=== PATIENT | female | born 1975 | race Asian ===

== ENCOUNTER 2016-08-16 09:03 | Emergency (ER) | payer OTHER ==
[~2016-08-16] VITALS: Wt 83.0 kg
--- NOTE | 2016-08-16 11:37 | ERD ---
ER Documentation Chief Complaint Date/Time DATE: 08/16/16 TIME: 11:33 Chief Complaint DOG BITE ON LEFT LOWER EXT, ABRASION NOTED HPI 40-year-old female with a history of type 2 diabetes and hypertension presents to the emergency department following a playful dog bite which occurred at 5 AM this morning. Patient states that she recently obtained a copy who is now 3 months old. Patient notes the puppy is in well health and does not exhibit any signs or symptoms concerning for rabies including rabid behavior, irritability, or aggression. The patient is not a wild animal and was brought through a credible breeder. Today the puppy was playing with her and nipped her leg. Patient denies any deep puncture wound, or major injury however she is concerned because the puppy has not yet received his vaccinations for rabies. Patient denies any pain, bleeding, discharge, redness, swelling, nausea, vomiting, diarrhea, fever, or chills. Patient also denies any weakness in upper extremities, or fear of drinking water. Patient states she is able to bear weight and denies any nearby joint pain or swelling. Patient unsure as to when her last tetanus shot was. ROS All systems reviewed and are negative except as per history of present illness. Medications Home Meds Active Scripts Cephalexin* (Keflex*) 500 Mg Capsule, 500 MG PO QID for 5 Days, CAP Prov:LINCONL HERNÁNDEZ PA-C 08/16/16 PMhx/Soc Medical and Surgical Hx: pt denies Medical Hx, pt denies Surgical Hx Physical Exam Vitals Vital Signs Date Time Temp Pulse Resp B/P Pulse Ox O2 Delivery O2 Flow Rate FiO2 08/16/16 09:20 98.3 106 17 152/87 98 Physical Exam Const: Well-developed, well-nourished, in no acute distress Head: Atraumatic Eyes: Normal Conjunctiva ENT: Normal External Ears, Nose and Mouth. Neck: Full range of motion..~ No meningismus. Resp: Clear to auscultation bilaterally Cardio: Regular rate and rhythm, no murmurs Abd: Soft, non tender, non distended. Normal bowel sounds Skin: 0.5 cm superficial abrasion located on the left lateral lower leg without evidence of puncture. No active bleeding, erythema, swelling, or discharge. No tenderness to palpation of the surrounding tissue. No evidence of overlying cellulitis or abscess formation. No evidence of foreign body. Unable to express any discharge upon palpation of the area. No petechiae or rashes Back: No midline or flank tenderness Ext: Full range of motion at left knee and hip joints. No cyanosis, or edema. Patient able to bear weight and ambulate 20 steps without discomfort. Neur: Awake and alert. Cranial nerves II through X intact. EOMs intact. PERRLA Psych: Normal Mood and Affect Results 24 hrs Current Medications Medications (Trade) Dose Ordered Sig/Figueroa Route PRN Reason Start Time Stop Time Status Last Admin Dose Admin Diphtheria/ Tetanus/Acell Pertussis (Adacel) 0.5 ml ONCE ONCE IM* 08/16/16 12:00 08/16/16 12:01 08/16/16 11:49 Procedures/MDM 40-year-old female presents to the emergency department with concerns after experiencing a minor dog bite from her unvaccinated puppy this morning. I had a long discussion with the patient regarding the option as well as risk and benefits for rabies prophylaxis. Due to the mild nature of her injury as well as general health of her puppy, the joint decision was made to forego prophylaxis treatment at this time. I provided the patient with information as well as patient education regarding rabies from up-to-date. I recommended to the patient to have her puppy vaccinated as soon as possible and possibly tested for rabies within the next couple days. Patient received a tetanus booster while in the emergency department today. Patient also received antibiotic course she has a history of diabetes although at this time there is no evidence of skin or soft tissue infection. Patient to continue Motrin and Tylenol for pain. Based on patient's history of present illness and physical examination the decision was made to discharge. The patient was re-evaluated after ED treatment and stabilizing measures, and symptoms have improved. There is no evidence of life threatening injuries or illnesses at this time. On re-examination, patient resting in no distress, stable vital signs, reports feeling better and safe for discharge with outpatient follow up with PMD in 1-2 days. Patient given return precautions. Departure Diagnosis: Primary Impression: Dog bite Encounter type: initial encounter Qualified Code: W54.0XXA - Dog bite, initial encounter Additional Impression: Skin abrasion LINCOLN HERNÁNDEZ PA-C Aug 16, 2016 11:37
[2016-08-16] MEDS ORDERED: CEPH-443 PO (11:49)
[2016-08-16] MEDS ORDERED: DIPHTH/TET/ACEL PERTUSS (ADULT) 0.5 ML VIAL IM* ONE (12:00)
== END 2016-08-16 12:17 | disposition home or self-care (01) ==
LOC: FTE 09:03
DX: S81.852A Open bite, left lower leg, initial encounter (principal); I10 Essential (primary) hypertension; E11.9 Type 2 diabetes mellitus without complications; W54.0XXA Bitten by dog, initial encounter; Y92.9 Unspecified place or not applicable; Z23 Encounter for immunization
CPT/HCPCS: 90471; 90715; Z7502

== ENCOUNTER 2017-08-05 21:57 | Inpatient (IN) | END 2017-08-09 15:23 | disposition home or self-care (01) | DRG 683 ==

== ENCOUNTER 2018-05-05 10:49 | Day surgery (SDC) | END 2018-05-05 18:21 | disposition home or self-care (01) ==